=== PATIENT | female | born 1985 | race Two or more races ===

== ENCOUNTER 2017-09-13 17:06 | Emergency (ER) | payer OTHER ==
[2017-09-13 19:30] LABS: BASO # 0.1 10^3/uL (0.0-0.2); BASO % 1.5 % (0.0-1.0); EOS # 0.1 10^3/uL (0.0-0.50); EOS % 0.9 % (0.0-3.0); HEMATOCRIT 33.6 % (36.0-47.0); IMMATURE GRANULOCYTE % 0.2 % (0-3.0); LYMPH # 1.6 10^3/uL (1.5-4.5); LYMPH % 18.6 % (24.0-44.0); MEAN CORPUSCULAR HGB CONC 32.7 g/dl (32.0-36.5); MEAN CORPUSCULAR VOLUME 88.7 fl (80.0-96.0); MONO # 0.5 10^3/uL (0.0-0.8); MONO % 5.6 % (0.0-5.0); NEUTROPHILS # 6.4 10^3/uL (1.8-7.7); NEUTROPHILS % 73.2 % (36.0-66.0); PLATELET COUNT, AUTOMATED 336 10^3/uL (150-450); RED BLOOD COUNT 3.79 10^6/uL (4.00-5.40); RED CELL DISTRIBUTION WIDTH 16.4 % (11.5-14.5); WHITE BLOOD COUNT 8.8 10^3/uL (4.0-10.0)
[2017-09-13 19:45] LABS: CONTROL LINE HCG INT CTR LINE PRESENT; HCG, SERUM QUALITATIVE NEGATIVE (NEGATIVE)
[2017-09-13 19:53] LABS: LACTIC ACID SEPSIS PROTOCOL 1.1 MMOL/L (0.4-2.0)
[2017-09-13 19:58] LABS: ANION GAP 8 MEQ/L (8-16); BLOOD UREA NITROGEN 7 MG/DL (7-18); CALCIUM LEVEL 8.9 MG/DL (8.5-10.1); CARBON DIOXIDE LEVEL 28 MEQ/L (21-32); CHLORIDE LEVEL 106 MEQ/L (98-107); CREATININE FOR GFR 0.69 MG/DL (0.55-1.30); GLOMERULAR FILTRATION RATE > 60.0 (>60); GLUCOSE, FASTING 92 MG/DL (70-100); MAGNESIUM LEVEL 2.2 MG/DL (1.8-2.4); POTASSIUM SERUM 3.9 MEQ/L (3.5-5.1); SODIUM LEVEL 142 MEQ/L (136-145)
[2017-09-13 22:13] LABS: BEDSIDE GLUCOSE 101 MG/DL (70-105)
[2017-09-14 14:21] LABS: BEDSIDE GLUCOSE 120 MG/DL (70-105)
== END 2017-09-13 22:15 | disposition home or self-care (01) ==
LOC: M ED 17:06
DX: R20.0 Anesthesia of skin (principal); R00.0 Tachycardia, unspecified; E78.5 Hyperlipidemia, unspecified; K21.9 Gastro-esophageal reflux disease without esophagitis; Z82.49 Family history of ischemic heart disease and other diseases of the circulatory system
CPT/HCPCS: 71045

== ENCOUNTER 2017-10-09 09:30 | Outpatient (RCR) | payer OTHER | END 2017-10-11 | LOC: M OT 09:30 | DX: Z51.89 Encounter for other specified aftercare (principal); G56.22 Lesion of ulnar nerve, left upper limb ==

== ENCOUNTER 2017-10-15 13:32 | Outpatient (RCR) | payer OTHER | END 2017-11-10 | LOC: M OT 13:32 → M PT 10-18 12:54 | DX: Z51.89 Encounter for other specified aftercare (principal); G56.22 Lesion of ulnar nerve, left upper limb ==

== ENCOUNTER → 2018-01-24 | Outpatient (CLI) | payer OTHER | LOC: M RAD 12:49 | DX: M25.561 Pain in right knee (principal); M54.12 Radiculopathy, cervical region | CPT/HCPCS: 72052 ==

== ENCOUNTER 2018-06-11 09:00 | Outpatient (RCR) | payer OTHER ==
[~2018-06-11 09:00] MED LIST: PRIL20TA2 PO; [UNRECOGNIZED DRUG - OTHER]
== END 2018-06-13 ==
LOC: M PT 09:00
PROVIDERS: ATTEND Physician Assistant Medical
DX: M25.561 Pain in right knee (principal); S60.211D Contusion of right wrist, subsequent encounter; W18.30XD Fall on same level, unspecified, subsequent encounter; Y92.009 Unspecified place in unspecified non-institutional (private) residence as the place of occurrence of the external cause

== ENCOUNTER 2018-07-09 10:27 | Outpatient (RCR) | payer OTHER | END 2018-07-11 | LOC: M PT 10:27 | PROVIDERS: ATTEND Physician Assistant Medical | DX: M25.561 Pain in right knee (principal); S60.211D Contusion of right wrist, subsequent encounter; W18.30XD Fall on same level, unspecified, subsequent encounter; Y92.009 Unspecified place in unspecified non-institutional (private) residence as the place of occurrence of the external cause ==

== ENCOUNTER → 2019-08-18 | Outpatient (CLI) | payer OTHER | LOC: M LABSMTC 09:56 | PROVIDERS: ATTEND Family Medicine | DX: Z11.59 Encounter for screening for other viral diseases (principal); Z20.828 Contact with and (suspected) exposure to other viral communicable diseases ==